=== PATIENT | male | born 1955 | race Caucasian/White ===

== ENCOUNTER 2017-07-30 16:17 | Emergency (ER) | payer OTHER ==
[2017-07-30 16:29] VITALS: O2SAT 96
--- NOTE | 2017-07-30 16:43 | EDPHY ---
H & P Stated Complaint: elevated BP Time Seen by Provider: 07/30/17 16:43 - Personal History Current Tetanus/Diphtheria Vaccine: Unsure Current Tetanus Diphtheria and Acellular Pertussis (TDAP): Unsure - Medical/Surgical History Hx Asthma: No Hx Chronic Respiratory Disease: No Hx Diabetes: No Hx Cardiac Disease: No Hx Renal Disease: No Hx Cirrhosis: No Hx Alcoholism: No Hx HIV/AIDS: No Hx Splenectomy or Spleen Trauma: No Other PMH: arthritis, - Social History Smoking Status: Never smoked Constitutional: Initial Vital Signs Temperature (C) 36.7 C 07/30/17 16:27 Heart Rate 92 07/30/17 16:27 Respiratory Rate 16 07/30/17 16:27 Blood Pressure 149/116 H 07/30/17 16:27 O2 Sat (%) 96 07/30/17 16:27 O2 Delivery Mode Room Air Allergies/Adverse Reactions: No Known Allergies Allergy (Unverified 07/30/17 16:24) Home Medications: Medication Instructions Recorded LORAZEPAM 08/21/14 Humira 07/30/17 Lisinopril 10 mg PO DAILY #30 tablet 07/30/17 Medical Decision Making ED Course/Re-evaluation: CHIEF COMPLAINT: Hypertension HISTORY OF PRESENT ILLNESS: This patient is a healthy 61 year old male complaining of elevated blood pressure noted today at his primary care provider's office. He visited his PCP because he has been feeling unusually anxious and stressed recently. During his exam, his blood pressure was noted to be elevated at 180/120. A repeat measure later in the exam was the same. He was encouraged to track his blood pressure at home. Upon arrival at home, he noted he was increasingly hypertensive at 186/ 133, and decided to present to the emergency department. He denies chest pain, shortness of breath, or any recent illness or trauma. He has not started any new medications lately. He does endorse a pressure sensation behind his eyes. He has no further complaints at this time. REVIEW OF SYSTEMS: A 10 point review of systems was performed and is negative with the exception of the elements mentioned in the history of present illness. PHYSICAL EXAM: HR, BP, O2 Sat, RR. Temp noted General Appearance: Alert, well hydrated, appropriate, and non-toxic appearing. Head: Atraumatic without scalp tenderness or obvious injury Eyes: Pupils equal, round, reactive to light and accommodation, EOMI, no trauma , no injection. Throat: Mucus membranes moist. Neck: Supple, nontender, no lymphadenopathy. Respiratory: No retractions, no distress, no wheezes, and no accessory muscle use. Lungs are clear to auscultation bilaterally. Cardiovascular: Regular rate and rhythm. Systolic crescendo/decrescendo murmur. No rubs or gallops. Good capillary refill all extremities. Gastrointestinal: Abdomen is soft, nontender, non-distended. Musculoskeletal: Normal active ROM of all extremities, atraumatic. Neurological: Alert, appropriate, and interactive. Nonfocal neuro exam. Skin: No rashes, good turgor, no nodules on palpation. Past medical history: Rheumatoid arthritis (Humira) Past surgical history: Noncontributory Family history: Noncontributory Social history: . at bedside. Lives in [place]. DIAGNOSTICS/PROCEDURES/CRITICAL CARE TIME: The 12 lead EKG was interpreted by myself. See hard copy and/or "tracemaster" electronic copy for interpretation. Sinus rhythm, rate 69. DIFFERENTIAL DIAGNOSIS: Includes but not limited to essential hypertension, hypertensive urgency, hypertensive emergency, myocardial infarction, stroke, medication overdose, medication noncompliance. MEDICAL DECISION MAKIN61 year old male presents with high blood pressure noted today during a visit with his primary care provider. BP 149/116 at triage. Exam unremarkable. IV established. Plan for EKG labs including CBC, BMP, UA. Patient's vitals are currently stable, and he is alert and well-appearing. Reviewed laboratory studies. Labs are unremarkable. The patient is experiencing hypertensive urgency, no hypertensive emergency at this time. No evidence of organ damage. EKG shows sinus rhythm. 17:38 Reassessed patient. Discussed laboratory results. Plan to discharge home in good condition with prescription for Lisinopril. He will follow up with his primary care physician for continued management of his medication regimen. On reassessment, the patient states his primary care physician prescribed Lopressor BID today, but he came to the ED prior to starting this medication after noting his blood pressure continued to increase. After our discussion of antihypertensive medications, he prefers to try Lisinopril. Plan to administer 10mg PO Lisinopril prior to discharge. Follow up and return precautions discussed. The patient is comfortable with this plan. - Data Points Laboratory Results: Laboratory Results 07/30/17 16:55 07/30/17 16:55 07/30/17 07/30/17 16:55 16:55 WBC 8.45 10^3/uL 10^3/uL (3.80-9.50) RBC 5.00 10^6/uL 10^6/uL (4.40-6.38) Hgb 15.5 g/dL g/dL (13.7-17.5) Hct 43.4 % % (40.0-51.0) MCV 86.8 fL fL (81.5-99.8) MCH 31.0 pg pg (27.9-34.1) MCHC 35.7 g/dL g/dL (32.4-36.7) RDW 12.6 % % (11.5-15.2) Plt Count 350 10^3/uL 10^3/uL (150-400) MPV 9.5 fL fL (8.7-11.7) Neut % (Auto) 59.7 % % (39.3-74.2) Lymph % (Auto) 29.5 % % (15.0-45.0) [place] % (Auto) 9.5 % % (4.5-13.0) Eos % (Auto) 0.5 % L % (0.6-7.6) Baso % (Auto) 0.6 % % (0.3-1.7) Nucleat RBC Rel Count 0.0 % % (0.0-0.2) Absolute Neuts (auto) 5.05 10^3/uL 10^3/uL (1.70-6.50) Absolute Lymphs (auto) 2.49 10^3/uL 10^3/uL (1.00-3.00) Absolute Monos (auto) 0.80 10^3/uL 10^3/uL (0.30-0.80) Absolute Eos (auto) 0.04 10^3/uL 10^3/uL (0.03-0.40) Absolute Basos (auto) 0.05 10^3/uL 10^3/uL (0.02-0.10) Absolute Nucleated RBC 0.00 10^3/uL 10^3/uL (0-0.01) Immature Gran % 0.2 % % (0.0-1.1) Immature Gran # 0.02 10^3/uL 10^3/uL (0.00-0.10) Sodium 141 mEq/L mEq/L (134-144) Potassium 3.9 mEq/L mEq/L (3.5-5.2) Chloride 105 mEq/L mEq/L (97-110) Carbon Dioxide 23 mEq/l mEq/l (22-31) Anion Gap 13 mEq/L mEq/L (8-16) BUN 12 mg/dL mg/dL (7-23) Creatinine 1.1 mg/dL mg/dL (0.7-1.3) Estimated GFR > 60 Glucose 110 mg/dL H mg/dL (70-100) Calcium 10.0 mg/dL mg/dL (8.5-10.4) Medications Given: Discontinued Medications Lisinopril (Zestril) 10 mg PO EDNOW ONE Stop: 07/30/17 17:36 Last Admin: 07/30/17 17:49 Dose: 10 mg Departure - Departure Disposition: Home, Routine, Self-Care Clinical Impression: Hypertension Qualifiers: Hypertension type: unspecified Qualified Code(s): I10 - Essential (primary) hypertension Condition: Good Instructions: Hypertension (ED) Additional Instructions: 1. Follow up with your primary care provider for continued management of your medication regimen. 2. Take Lisinopril as prescribed daily each morning. Record your blood pressure and heart rate daily as we discussed. 3. Return to the emergency department if you develop chest pain, shortness of breath, severe headache, or other worsening of condition. Referrals: TARYN HOOD [Other] - As per Instructions Andrea Flores DO [Doctor of Osteopathy] - As per Instructions Prescriptions: Lisinopril 10 mg PO DAILY #30 tablet Report Scribed for: Harshil Aguilar Report Scribed by: Latia Braswell Date of Report: 07/30/17 Time of Report: 18:01
--- NOTE | 2017-07-30 16:51 | CPEKG ---
Heart Rate: 69 RR Interval: 870 P-R Interval: 156 QRSD Interval: 78 QT Interval: 388 QTC Interval: 416 P [place]: 73 QRS [place]: 19 T Wave [place]: 44 EKG Severity - NORMAL ECG - EKG Impression: SINUS RHYTHM Electronically Signed By: Harshil Aguilar 30-Jul-2017 21:51:37
[2017-07-30 17:31] LABS: ANION GAP 13 mEq/L (8-16); CARBON DIOXIDE 23 mEq/l (22-31); CHLORIDE 105 mEq/L (97-110); CREATININE 1.1 mg/dL (0.7-1.3); GLOMERULAR FILTRATION RATE > 60; GLUCOSE 110 mg/dL (70-100); POTASSIUM 3.9 mEq/L (3.5-5.2); SODIUM 141 mEq/L (134-144)
[2017-07-30 17:33] LABS: % IMMATURE GRANULYOCYTES 0.2 % (0.0-1.1); ABSOLUTE IMMATURE GRANULOCYTES 0.02 10^3/uL (0.00-0.10); ADD DIFF? NO; ADD MORPH? NO; ADD SCAN? NO; ATYPICAL LYMPHOCYTE FLAG 40 (0-99); FRAGMENT RBC FLAG 0 (0-99); HEMATOCRIT 43.4 % (40.0-51.0); HEMOGLOBIN 15.5 g/dL (13.7-17.5); LEFT SHIFT FLG 0 (0-99); LIPEMIA HEMOLYSIS FLAG 90 (0-99); MEAN CELL HEMOGLOBIN CONCENTR. 35.7 g/dL (32.4-36.7); MEAN CELL VOLUME 86.8 fL (81.5-99.8); MEAN PLATELET VOLUME 9.5 fL (8.7-11.7); PLATELET CLUMPS FLAG 10 (0-99); PLATELET COUNT 350 10^3/uL (150-400); RED CELL DISTRIBUTION WIDTH 12.6 % (11.5-15.2)
[2017-07-30] MEDS ORDERED: LISINOPRIL 20 MG TAB PO ONE (17:35)
[2017-07-30 18:21] VITALS: BP 186/123; PULSE 72; RESP 18; TEMP 98.2
== END 2017-07-30 18:27 | disposition home or self-care (01) ==
DX: I10 Essential (primary) hypertension (principal)